=== PATIENT | male | born 1985 | race Native Hawaiian/Other Pacific Islander ===

== ENCOUNTER 2016-05-26 20:11 | Emergency (ER) | payer BC ==
[2016-05-26 20:23] VITALS: BP 127/64; PULSE 68; RESP 16; TEMP 98.3; O2SAT 100
--- NOTE | 2016-05-26 21:09 | ED PDOC ---
HPI: CCC, URI, Sore Throat Time Seen by Provider: 05/26/16 20:43 Chief Complaint (Nursing): Fever Chief Complaint (Provider): cough History Per: Patient History/Exam Limitations: no limitations Onset/Duration Of Symptoms: Days (3) Current Symptoms Are (Timing): Still Present Associated Symptoms: Cough Additional History Per: Patient Additional Complaint(s): 31 y/o male presents for eval of nonproductive cough x 3 days. Associated dry/ itchy throat. Denies fever, ear pain, nausea/vomiting, chest pain, shortness of breath, abdominal pain, changes in bowel movements, recent travel. No relief with one Zyrtec. Past Medical History Reviewed: Historical Data, Nursing Documentation, Vital Signs Vital Signs: Last Vital Signs Temp 98.3 F 05/26/16 20:21 Pulse 68 05/26/16 20:21 Resp 16 05/26/16 20:21 BP 127/64 05/26/16 20:21 Pulse Ox 100 05/26/16 21:09 - Medical History PMH: No Chronic Diseases - Surgical History Surgical History: No Surg Hx - Family History Family History: States: Unknown Family Hx - Living Arrangements Living Arrangements: With Family - Home Medications Home Medications: Ambulatory Orders Medication Instructions Recorded Promethazine DM [Phenergan DM Oral 5 ml PO Q6H PRN #100 dose 05/26/16 Syrup] - Allergies Allergies/Adverse Reactions: Allergies Allergy/AdvReac Type Severity Reaction Status Date / Time No Known Allergies Allergy Verified 05/26/16 20:21 Review of Systems ROS Statement: Except As Marked, All Systems Reviewed And Found Negative Respiratory: Positive for: Cough Physical Exam - Reviewed Nursing Documentation Reviewed: Yes Vital Signs Reviewed: Yes - Physical Exam Appears: Positive for: Well, Non-toxic, No Acute Distress Head Exam: Positive for: ATRAUMATIC, NORMAL INSPECTION, NORMOCEPHALIC Skin: Positive for: Normal Color Eye Exam: Positive for: Normal appearance ENT: Positive for: Normal ENT Inspection Cardiovascular/Chest: Positive for: Regular Rate, Rhythm Respiratory: Positive for: Normal Breath Sounds Gastrointestinal/Abdominal: Positive for: Normal Exam Extremity: Positive for: Normal ROM Neurologic/Psych: Positive for: Alert, Oriented - ECG O2 Sat by Pulse Oximetry: 100 - Radiology X-Ray: Viewed By Dc X-Ray Interpretation: No Acute Disease - Progress ED Course And Treament: flu, chest xray Patient educated on findings, discharged with rx Promethazine DM. Advised to follow up PMD 2-3 days. Return to ED for worsening/concerning symptoms. Disposition - Clinical Impression Clinical Impression: Cough - Patient ED Disposition Is Patient to be Admitted: No Counseled Patient/Family Regarding: Studies Performed, Diagnosis, Need For Followup, Rx Given - Disposition Disposition: Routine/Home Disposition Time: 23:09 Condition: GOOD Prescriptions: Promethazine DM [Phenergan DM Oral Syrup] 5 ml PO Q6H PRN #100 dose PRN Reason: Cough
--- NOTE | 2016-05-27 10:29 | RAD ---
HISTORY: cough COMPARISON: No prior. TECHNIQUE: Chest PA and lateral FINDINGS: LUNGS: No active pulmonary disease. PLEURA: No significant pleural effusion identified. No pneumothorax apparent. CARDIOVASCULAR: Normal. OSSEOUS STRUCTURES: No significant abnormalities. VISUALIZED UPPER ABDOMEN: Normal. OTHER FINDINGS: None. IMPRESSION: No active disease.
== END 2016-05-26 23:30 | disposition home or self-care (01) ==
LOC: H.ER 20:11
DX: R05 Cough (principal)

== ENCOUNTER 2016-08-14 18:44 | Emergency (ER) | payer BC ==
[2016-08-14] MEDS ORDERED: Sodium Chloride 0.9% 1,000 ML IV STA ×2 (19:23→20:42)
[2016-08-14 19:53] LABS: BASO % 0.1 % (0.0-2.0); EOS % 0.1 % (0.0-4.0); HEMOGLOBIN 16.1 g/dL (12.0-18.0); LYMPH # 1.4 K/uL (1.0-4.3); LYMPH % 8.2 % (20.0-40.0); MEAN CELL VOLUME 85.4 fl (80.0-94.0); MEAN CORPUSCULAR HEMOGLOBIN 28.4 pg (27.0-31.0); MEAN CORPUSCULAR HGB CONC 33.3 g/dL (33.0-37.0); MEAN PLATELET VOLUME 8.1 fl (7.2-11.7); MONO # 0.7 K/uL (0.0-0.8); MONO % 3.9 % (0.0-10.0); NEUT % 87.7 % (50.0-75.0); NRBC % 0.2 % (0.0-0.0); PLATELET COUNT 289 K/uL (130-400); RBC 5.67 Mil/uL (4.40-5.90); RED CELL DISTRIBUTION WIDTH 13.8 % (11.5-14.5); WHITE BLOOD COUNT 17.2 K/uL (4.8-10.8)
[2016-08-14 20:07] LABS: ALB/GLOB RATIO 1.5 (1.0-2.1); ALBUMIN 5.2 g/dL (3.5-5.0); ALT/SGPT 33 U/L (21-72); AST/SGOT 32 U/L (17-59); BLOOD UREA NITROGEN 13 mg/dl (9-20); CALCIUM 9.6 mg/dL (8.4-10.2); GFR AFRICAN-AMERICAN > 60; GFR NON-AFRICAN AMERICAN > 60; LIPASE 79 U/L (23-300)
[2016-08-14 20:25] LABS: BASOPHIL 1 % (0-2); LYMPHOCYTE 8 % (20-50); MONOCYTE 4 % (0-10); NEUTROPHIL 87 % (42-75); TOTAL CELLS COUNTED 100
[2016-08-14 20:27] LABS: PLATELET ESTIMATE NORMAL (NORMAL)
--- NOTE | 2016-08-14 20:53 | ED PDOC ---
HPI: General Adult Time Seen by Provider: 08/14/16 19:21 Chief Complaint (Nursing): Altered Mental Status Chief Complaint (Provider): Weakness History Per: Patient History/Exam Limitations: no limitations Onset/Duration Of Symptoms: Hrs Current Symptoms Are (Timing): Still Present Additional Complaint(s): 31 y/o male presents to the emergency department with a complaint of generalized weakness especially to the upper extremities, 10 episodes of vomiting (non bloody), and 10 episodes of diarrhea (food colored and watery; non bloody). Upon arrival to emergency department, patient felt very weak and had to lie on the floor. States his stomach feels "numb." Denies syncope episode, fall, or head injury. Past Medical History Reviewed: Historical Data, Nursing Documentation, Vital Signs Vital Signs: Last Vital Signs Temp 97.7 F 08/14/16 18:49 Pulse 76 08/14/16 21:08 Resp 16 08/14/16 21:08 BP 122/64 08/14/16 21:08 Pulse Ox 98 08/14/16 22:14 - Medical History PMH: No Chronic Diseases - Surgical History Surgical History: No Surg Hx - Family History Family History: States: Unknown Family Hx - Home Medications Home Medications: Ambulatory Orders Medication Instructions Recorded Ondansetron [Zofran] 4 mg PO Q8H #12 tab 08/14/16 - Allergies Allergies/Adverse Reactions: Allergies Allergy/AdvReac Type Severity Reaction Status Date / Time No Known Allergies Allergy Verified 05/26/16 20:21 Review of Systems ROS Statement: Except As Marked, All Systems Reviewed And Found Negative Constitutional: Positive for: Weakness (Generalized especially upper extremeties ) Gastrointestinal: Positive for: Vomiting, Diarrhea, Other (Stomach fees "numb") Physical Exam - Reviewed Nursing Documentation Reviewed: Yes Vital Signs Reviewed: Yes - Physical Exam Appears: Positive for: Non-toxic (Tired appearing), No Acute Distress Head Exam: Positive for: ATRAUMATIC, NORMAL INSPECTION, NORMOCEPHALIC Skin: Positive for: Warm, Dry, Pallor Eye Exam: Positive for: Normal appearance ENT: Positive for: Normal ENT Inspection Neck: Positive for: Normal, Painless ROM, Supple Cardiovascular/Chest: Positive for: Regular Rate, Rhythm. Negative for: Murmur Respiratory: Positive for: Normal Breath Sounds. Negative for: Accessory Muscle Use, Respiratory Distress Gastrointestinal/Abdominal: Positive for: Normal Exam, Bowel Sounds, Soft. Negative for: Tenderness, Organomegaly, Guarding Neurologic/Psych: Positive for: Alert, construction project engineer II-XII, Oriented, Other (Global weakness but with normal sensation and reflexes. ) - Laboratory Results Result Diagrams: 08/14/16 21:50 08/14/16 19:39 - ECG O2 Sat by Pulse Oximetry: 98 (RA) Pulse Ox Interpretation: Normal Medical Decision Making Medical Decision Making: Time: 19:23 Initial impression: Gastroenteritis and Dehydration Initial plan: --Cervical Spine w/o contrast CT --Head w/o Contrast CT --Electrocardiogram STAT --EKG-ED --Sodium Chloride 1,000 ml IV 1,000 mls/hr --Ondansetron 4 mg IVP --Urinalysis STAT Time: 20:42 --Sodium Chloride 1,000 ml IV 1,000 mls/hr Time: 20:45 --Head CT FINDINGS: BRAIN: There are bilateral middle cranial fossa arachnoid cysts, measuring 4.5 x 3.1 cm on the right and 4 x 1.3 cm on the left. There is no acute ischemic infarct, hemorrhage, mass, or mass effect. There is no focal abnormality of brain parenchymal attenuation. MIDLINE SHIFT: There is no midline shift. VENTRICLES: The ventricles and cisterns are of normal size and configuration. No hydrocephalus. BONES/JOINTS: The skull base and calvarium are intact. SOFT TISSUES: Scalp soft tissues are unremarkable. SINUSES: The imaged paranasal sinuses are clear. MASTOID AIR CELLS: The imaged mastoid air cells are clear. ORBITS: The imaged intraorbital contents appear normal. IMPRESSION: No evidence of an acute ischemic infarct, hemorrhage, or mass. Bilateral middle cranial fossa arachnoid cysts. Time: 21:03 --Cervical Spine CT FINDINGS: VERTEBRAE: There is no acute fracture or subluxation. EPIDURAL SPACE: There is no obvious epidural hematoma. DISCS/SPINAL CANAL/NEURAL FORAMINA: There is no disc space narrowing. No significant degenerative changes are identified. No significant disc bulge or herniation is seen. SOFT TISSUES: Prevertebral soft tissues are normal. SINUSES: The imaged sinuses are clear. MASTOID AIR CELLS: The imaged mastoid air cells are clear. LUNG APICES: The imaged lung apices are clear. OTHER FINDINGS: There are bilateral middle cranial fossa arachnoid cysts, see the accompanying brain CT report. IMPRESSION: No fracture or subluxation. Normal cervical spine CT without contrast 2200 Patient feeling much better, lactate cleared, leukocytosis likely 2/2 to vomiting and dehydration. Patient was not observed with seizure activity, likely pre-syncope/weakness 2/2 to dehydration. Arachnoid cysts on CT likely chronic and not related to today's presentation. Copies of CT given to patient. Return precautions discussed and encouraged followup with Dr. Lowry. Abd exam benign, no appendicitis suspected at this time but strict return precautions were given to patient. Scribe Attestation: Documented by Ynay Reeder, acting as a scribe for Katarina Valentin MD. Provider Scribe Attestation: All medical record entries made by the Scribe were at my direction and personally dictated by me. I have reviewed the chart and agree that the record accurately reflects my personal performance of the history, physical exam, medical decision making, and the department course for this patient. I have also personally directed, reviewed, and agree with the discharge instructions and disposition. Disposition - Clinical Impression Clinical Impression: Gastroenteritis, Dehydration - Disposition Referrals: [facility] [Outside] Wilver Lowry MD [Staff Provider] - Disposition: Routine/Home Disposition Time: 22:56 Condition: IMPROVED Prescriptions: Ondansetron [Zofran] 4 mg PO Q8H #12 tab Instructions: Gastroenteritis (ED), Dehydration (ED) Forms: [employer] (Sami)
[2016-08-14 21:08] VITALS: RESP 16
[2016-08-14 22:03] LABS: BASO % 0.2 % (0.0-2.0); HEMOGLOBIN 13.7 g/dL (12.0-18.0); LYMPH # 0.8 K/uL (1.0-4.3); LYMPH % 4.9 % (20.0-40.0); MEAN CELL VOLUME 84.4 fl (80.0-94.0); MEAN CORPUSCULAR HEMOGLOBIN 28.2 pg (27.0-31.0); MEAN CORPUSCULAR HGB CONC 33.4 g/dL (33.0-37.0); MEAN PLATELET VOLUME 7.8 fl (7.2-11.7); MONO # 0.8 K/uL (0.0-0.8); MONO % 4.8 % (0.0-10.0); NEUT # 14.5 K/uL (1.8-7.0); NEUT % 90.1 % (50.0-75.0); RBC 4.85 Mil/uL (4.40-5.90); RED CELL DISTRIBUTION WIDTH 13.7 % (11.5-14.5); WHITE BLOOD COUNT 16.1 K/uL (4.8-10.8)
[2016-08-14 22:14] VITALS: O2SAT 98
[2016-08-14 23:22] LABS: SQUAMOUS EPITHIAL < 1 /hpf (0-5); URINE BACTERIA RARE (<OCC); URINE BILIRUBIN NEGATIVE (NEGATIVE); URINE BLOOD NEGATIVE (NEGATIVE); URINE CLARITY CLEAR (Clear); URINE COLOR YELLOW (YELLOW); URINE GLUCOSE (UA) NEG (Normal); URINE LEUKOCYTE ESTERASE NEG Leu/uL (Negative); URINE NITRATE NEGATIVE (NEGATIVE); URINE PROTEIN 30 mg/dL (NEGATIVE); URINE UROBILINOGEN 0.2-1.0 mg/dL (0.2-1.0)
[2016-08-15 03:28] VITALS: BP 116/62; PULSE 88; TEMP 98.7
--- NOTE | 2016-08-15 07:30 | CT ---
PROCEDURE: CT HEAD WITHOUT CONTRAST. HISTORY: syncope, head injury COMPARISON: None available. TECHNIQUE: Axial computed tomography images were obtained through the head/brain without intravenous contrast. Radiation dose: Total exam DLP = 860 mGy-cm. This CT exam was performed using one or more of the following dose reduction techniques: Automated exposure control, adjustment of the mA and/or kV according to patient size, and/or use of iterative reconstruction technique. FINDINGS: HEMORRHAGE: No intracranial hemorrhage. BRAIN: No mass effect or edema. Bilateral anterior temporal arachnoid cysts. No atrophy or chronic microvascular ischemic changes. VENTRICLES: Unremarkable. No hydrocephalus. CALVARIUM: Unremarkable. PARANASAL SINUSES: Unremarkable as visualized. No significant inflammatory changes. MASTOID AIR CELLS: Unremarkable as visualized. No inflammatory changes. OTHER FINDINGS: None. IMPRESSION: No intracranial hemorrhage.
--- NOTE | 2016-08-15 07:31 | CT ---
PROCEDURE: CT Cervical Spine without contrast HISTORY: <s/p fall> COMPARISON: None available. TECHNIQUE: Axial computed tomography images were obtained of the cervical spine without the use of intravenous contrast. Coronal and sagittal reformatted images were created and reviewed. Radiation dose: Total exam DLP = 545 mGy-cm. This CT exam was performed using one or more of the following dose reduction techniques: Automated exposure control, adjustment of the mA and/or kV according to patient size, and/or use of iterative reconstruction technique. FINDINGS: VERTEBRAE: No fracture. Normal alignment. No destructive bony lesion. DISCS/SPINAL CANAL/NEURAL FORAMINA: No significant central canal or neural foraminal stenosis. Discs heights are grossly preserved. PARASPINAL SOFT TISSUES: Unremarkable. OTHER FINDINGS: None. IMPRESSION: Unremarkable CT of the cervical spine.
--- NOTE | 2016-08-17 07:03 | CARD ---
APPROVED REPORT EKG Measurement Heart [id number] <Conclusion> Normal sinus rhythm Early repolarization Normal ECG
== END 2016-08-14 23:00 | disposition home or self-care (01) ==
LOC: H.ER 18:44
DX: K52.9 Noninfective gastroenteritis and colitis, unspecified (principal); E86.0 Dehydration; R11.10 Vomiting, unspecified; R53.1 Weakness
CPT/HCPCS: 70450; 72125; 80053; 81003; 82948; 83605; 83690; 85025; 93005; 96361; 96374; 99285; J2405; J7040